=== PATIENT | female | born 1980 | race Two or more races ===

== ENCOUNTER 2021-08-20 15:21 | Emergency (ER) | payer MEDICAID ==
[2021-08-20] MEDS ORDERED: Alum Hydro/Mag Hydro/Simeth XS 15 ML, Lidocaine 2% 5 ML PO ONE ×2 (15:52)
--- NOTE | 2021-08-20 15:55 | EDM.PDOC ---
ED HPI GENERAL MEDICAL PROBLEM - General Chief Complaint: Chest Pain Stated Complaint: OBDOMINAL PAIN TROUBLE BREATHING Time Seen by Provider: 08/20/21 15:39 Source of Information: Reports: Patient History Limitations: Reports: No Limitations - History of Present Illness INITIAL COMMENTS - FREE TEXT/NARRATIVE: 40-year-old female history of GI issues presents today for possible chest pain. States she had some dinner and has some burning epigastric area but we made a concern today was that the burning, radiates to her right arm. She does not have any chest pain at the moment but he Maeder concern. She denies any shortness of breath cough or other symptoms. States she had her gallbladder removed and supposed be on a certain diet but has not been sticking to it. She otherwise has no medical complaints right now. The pain was not made better or worse with any events. Chest Pain Score (Numeric/FACES): 7 - Related Data Allergies Allergy/AdvReac Type Severity Reaction Status Date / Time Penicillins Allergy Hives Verified 08/20/21 15:30 sulfamethoxazole Allergy Airway Verified 08/20/21 15:30 [From Bactrim] Tightness trimethoprim [From Bactrim] Allergy Airway Verified 08/20/21 15:30 Tightness Home Meds: Home Meds . [No Known Home Meds] 08/20/21 [History] Past Medical History Gastrointestinal History: Reports: GERD Psychiatric History: Reports: Anxiety - Past Surgical History GI Surgical History: Reports: Cholecystectomy Female Surgical History: Reports: Tubal Ligation Social & Family History - Recreational Drug Use Recreational Drug Use: No ED ROS GENERAL - Review of Systems Review Of Systems: See Below Constitutional: Reports: No Symptoms HEENT: Reports: No Symptoms Respiratory: Reports: No Symptoms Cardiovascular: Reports: Chest Pain Endocrine: Reports: No Symptoms GI/Abdominal: Reports: No Symptoms : Reports: No Symptoms Musculoskeletal: Reports: No Symptoms Skin: Reports: No Symptoms Neurological: Reports: No Symptoms Psychiatric: Reports: No Symptoms Hematologic/Lymphatic: Reports: No Symptoms Immunologic: Reports: No Symptoms ED EXAM, GENERAL - Physical Exam Exam: See Below Exam Limited By: No Limitations General Appearance: Alert, WD/WN, No Apparent Distress Eye Exam: Bilateral Eye: EOMI Nose: Normal Inspection Throat/Mouth: Normal Inspection Head: Atraumatic, Normocephalic Neck: Normal Inspection Respiratory/Chest: No Respiratory Distress, Lungs Clear, Normal Breath Sounds Cardiovascular: Normal Peripheral Pulses, Regular Rate, Rhythm GI/Abdominal: Normal Bowel Sounds, Soft, Non-Tender Extremities: Normal Inspection, Normal Range of Motion Neurological: Alert, Oriented, Normal Cognition, Normal Gait Course - Vital Signs Last Recorded V/S: Last Vital Signs Temp 98.1 F 08/20/21 17:00 Pulse 66 08/20/21 17:00 Resp 18 08/20/21 17:00 BP 117/57 L 08/20/21 17:00 Pulse Ox 98 08/20/21 17:00 - Orders/Labs/Meds Labs: Laboratory Tests 08/20/21 08/20/21 08/20/21 Range/Units 16:07 16:07 16:07 WBC 8.47 (4.0-11.0) K/uL RBC 4.60 (4.30-5.90) M/uL Hgb 14.4 (12.0-16.0) g/dL Hct 41.7 (36.0-46.0) % MCV 90.7 (80.0-98.0) fL MCH 31.3 (27.0-32.0) pg MCHC 34.5 (31.0-37.0) g/dL RDW Std Deviation 42.0 (28.0-62.0) fl RDW Coeff of Thaddeus 13 (11.0-15.0) % Plt Count 224 (150-400) K/uL MPV 11.00 (7.40-12.00) fL Neut % (Auto) 74.4 (48.0-80.0) % Lymph % (Auto) 17.2 (16.0-40.0) % Brown % (Auto) 7.7 (0.0-15.0) % Eos % (Auto) 0.5 (0.0-7.0) % Baso % (Auto) 0.2 (0.0-1.5) % Neut # (Auto) 6.3 H (1.4-5.7) K/uL Lymph # (Auto) 1.5 (0.6-2.4) K/uL Brown # (Auto) 0.7 (0.0-0.8) K/uL Eos # (Auto) 0.0 (0.0-0.7) K/uL Baso # (Auto) 0.0 (0.0-0.1) K/uL Nucleated RBC % 0.0 /100WBC Nucleated RBCs # 0 K/uL Sodium 141 (136-145) mmol/L Potassium 3.7 (3.5-5.1) mmol/L Chloride 106 (98-107) mmol/L Carbon Dioxide 25.9 (21.0-32.0) mmol/L BUN 16 (7.0-18.0) mg/dL Creatinine 0.8 (0.6-1.0) mg/dL Est Cr Clr Drug Dosing 74.67 mL/min Estimated GFR (MDRD) > 60.0 ml/min Glucose 102 (74-106) mg/dL Calcium 8.7 (8.5-10.1) mg/dL Phosphorus 3.2 (2.6-4.7) mg/dL Magnesium 2.0 (1.8-2.4) mg/dL Total Bilirubin 0.8 (0.2-1.0) mg/dL AST 19 (15-37) IU/L ALT 28 (14-63) IU/L Alkaline Phosphatase 70 (46-116) U/L Troponin I < 0.050 (0.000-0.056) ng/mL Total Protein 7.1 (6.4-8.2) g/dL Albumin 3.7 (3.4-5.0) g/dL Globulin 3.4 (2.6-4.0) g/dL Albumin/Globulin Ratio 1.1 (0.9-1.6) Lipase 60 L (73-393) U/L HCG, Qual NEGATIVE (NEG) Meds: Medications Discontinued Medications Generic Name Dose Route Start Last Admin Trade Name Freq PRN Reason Stop Dose Admin Alum Sidney/Mag Sidney/Simeth XS 0 ml 08/20/21 15:52 08/20/21 15:59 15 ml/ Lidocaine HCl 5 ml PO 08/20/21 15:53 15 each ONETIME ONE Administration - Re-Assessments/Exams Free Text/Narrative Re-Assessment/Exam: 08/20/21 16:54 : Negative patient feels better will be discharged home. Departure - Departure Time of Disposition: 16:55 Disposition: Home, Self-Care 01 Condition: Good Clinical Impression: Chest pain Instructions: Nonspecific Chest Pain, Adult, [id number] Referrals: Omar Weems MD [Primary Care Provider] - Forms: ED Department Discharge Additional Instructions: You were seen today for chest pain we did a cardiac work-up which included EKG labs and x-rays that are all within normal limits. This likely could be related to your GI issues we recommend follow-up to primary care physician if you continue to have symptoms or return to the ED if you have any other concerning symptoms. The following information is given to patients seen in the emergency department who are being discharged to home. This information is to outline your options for follow-up care. We provide all patients seen in our emergency department with a follow-up referral. The need for follow-up, as well as the timing and circumstances, are variable depending upon the specifics of your emergency department visit. If you don't have a primary care physician on staff, we will provide you with a referral. We always advise you to contact your personal physician following an emergency department visit to inform them of the circumstance of the visit and for follow-up with them and/or the need for any referrals to a consulting specialist. The emergency department will also refer you to a specialist when appropriate. This referral assures that you have the opportunity for follow-up care with a specialist. All of these measure are taken in an effort to provide you with optimal care, which includes your follow-up. Under all circumstances we always encourage you to contact your private physician who remains a resource for coordinating your care. When calling for follow-up care, please make the office aware that this follow-up is from your recent emergency room visit. If for any reason you are refused follow-up, please contact the [facility] Emergency Department at and asked to speak to the emergency department charge nurse. Please follow up with your primary care physician. If you do not have a primary care physician, see below: [facility] [address] [place] [id number] [facility] [address] [place] [address] Sepsis Event Note (ED) - Evaluation Sepsis Screening Result: No Definite Risk - Focused Exam Vital Signs: Vital Signs Temp Pulse Resp BP Pulse Ox 08/20/21 17:00 98.1 F 66 18 117/57 L 98 08/20/21 15:31 97.8 F 95 16 132/81 100 - Assessment/Plan Plan: Patient is a 40-year-old female who presents today for chest pain. Patient has a heart score of 0. Pain could past related to her GI issues but will still do an EKG labs and x-ray.
--- NOTE | 2021-08-20 16:21 | CR ---
INDICATION: Chest Pain TECHNIQUE: Chest 1 view. COMPARISON: None. FINDINGS: Cardiovascular and mediastinum: Heart size and vasculature are normal in caliber and appearance. Mediastinum is within normal limits. Lungs and pleural space: Lungs are clear. No sign of infiltrate or mass. No sign of pleural effusion. No pneumothorax. Bones and soft tissues: No significant findings. IMPRESSION: Unremarkable chest. Dictated by: Goyo Ceballos MD @ 08/20/2021 16:19:18 (Electronically Signed)
[2021-08-20 16:51] LABS: BLOOD UREA NITROGEN,BUN 16 mg/dL (7.0-18.0); CARBON DIOXIDE,CO2 25.9 mmol/L (21.0-32.0); CHLORIDE,CL 106 mmol/L (98-107); GLUCOSE RANDOM 102 mg/dL (74-106); LIPASE 60 U/L (73-393); POTASSIUM,K 3.7 mmol/L (3.5-5.1); SODIUM,NA 141 mmol/L (136-145)
--- NOTE | 2021-08-21 17:29 | PCM.EKG ---
#1 Interpretation EKG Date: 08/20/21 Time: 15:26 Rhythm: NSR Rate (Beats/Min): 78 ST-T: Normal
== END 2021-08-20 17:02 | disposition home or self-care (01) ==
LOC: MW.ED 15:21
DX: R07.9 Chest pain, unspecified (principal); K21.9 Gastro-esophageal reflux disease without esophagitis; Z88.0 Allergy status to penicillin; Z88.1 Allergy status to other antibiotic agents; Z90.49 Acquired absence of other specified parts of digestive tract
CPT/HCPCS: 36415; 71045; 80053; 83690; 83735; 84100; 84484; 84703; 85025; 93005; 99285; A9270

== ENCOUNTER 2022-03-10 17:42 | Emergency (ER) | payer MEDICAID ==
[2022-03-10] MEDS ORDERED: Ketorolac 60 MG/2 ML SDV IM ONE (17:55)
[2022-03-10 18:48] LABS: CORONAVIRUS COVID-19 NAA POSITIVE (NEGATIVE); INFLUENZA A NAA NEGATIVE (NEGATIVE); INFLUENZA B NAA NEGATIVE (NEGATIVE)
== END 2022-03-10 19:03 | disposition home or self-care (01) ==
LOC: MW.ED 17:42
DX: U07.1 COVID-19 (principal); F17.210 Nicotine dependence, cigarettes, uncomplicated; Z88.0 Allergy status to penicillin; Z88.2 Allergy status to sulfonamides
CPT/HCPCS: 0240U; 96372; 99283; J1885

== ENCOUNTER 2022-04-04 09:10 | Emergency (ER) | payer MEDICAID | END 2022-04-04 09:46 | disposition left against medical advice (07) | LOC: MW.ED 09:10 | DX: Z53.21 Procedure and treatment not carried out due to patient leaving prior to being seen by health care provider (principal) ==

== ENCOUNTER 2022-04-08 23:51 | Emergency (ER) | payer MEDICAID | END 2022-04-09 04:10 | disposition home or self-care (01) | LOC: MW.ED 23:51 | DX: R07.81 Pleurodynia (principal); Z88.0 Allergy status to penicillin; Z88.2 Allergy status to sulfonamides; Z88.8 Allergy status to other drugs, medicaments and biological substances; Z86.16 Personal history of COVID-19; Z90.49 Acquired absence of other specified parts of digestive tract | CPT/HCPCS: 36415; 71045; 71045-26; 81003; 84484; 93005; 93010; 99283; 99285 ==